=== PATIENT | male | born 1970 | race Caucasian/White ===

== ENCOUNTER 2017-11-03 06:24 | Day surgery (SDC) | payer BC ==
[2017-11-01 11:59] VITALS: BMI 31.6
[2017-11-03 07:29] VITALS: TEMP 98.7
[2017-11-03] MEDS ORDERED: SUCCINYLCHOLINE CHLORIDE 200 MG/10 ML VIAL ONE (08:41)
[2017-11-03] MEDS ORDERED: LIDOCAINE HCL/PF 2% SDV 5ML VIAL ONE ×2 (08:41→08:48)
[2017-11-03] MEDS ORDERED: MIDAZOLAM HCL 2 MG/2 ML SINGLE DOSE VIAL ONE ×2 (08:41)
[2017-11-03] MEDS ORDERED: PROPOFOL 20 ML ONE ×3 (08:41)
[2017-11-03] MEDS ORDERED: ACETAMINOPHEN INJECTION 100 ML IVPB ONE (08:52)
[2017-11-03] MEDS ORDERED: DESFLURANE GAS 240 ML BOTTLE IH ONE (08:54)
--- NOTE | 2017-11-03 08:59 | HP ---
[facility] - Chief Complaint Chief Complaint: Back mass, right posterior thigh mass History Source: Patient Limitations to Obtaining History: No Limitations - Past Medical History Allergies/Adverse Reactions: Allergies Allergy/AdvReac Type Severity Reaction Status Date / Time No Known Allergies Allergy Verified 11/03/17 07:30 - Current Medications Current Medications: Home Medications Medication Instructions Recorded Cholecalciferol (Vitamin D3) 50,000 unit PO WEEKLY 11/01/17 [Vitamin D3] Ferrous Sulfate [Feosol] 325 mg PO BID 11/01/17 Docusate Sodium [Colace -] 100 mg PO TID #90 capsule 11/03/17 Oxycodone HCl/Acetaminophen 1 - 2 tab PO Q6H #28 tab MDD 4 11/03/17 [Percocet 5-325 mg Tablet] Satellite Physical Exam - Physical Examination Vital Signs: Vital Signs Period Temp Pulse Resp BP Sys/Allen Pulse Ox Last 24 Hr 98.7 F 59 16 133/68 98 General Appearance: Well Nourished Lung: Clear to auscultation Heart: Regular rate & rhythm Abdomen: Soft, No tenderness Neurological: Alert, Oriented Satellite Impression/Plan - Impression/Plan Impression: Large back mass. Right exophytic thigh mass Operative Procedure: Excision of back mass and right posterior thigh mass Date to be Performed: 11/03/17
[2017-11-03] MEDS ORDERED: LIDOCAINE HCL 1%, 10 MG/ML (20ML VIAL) ONE (09:04)
[2017-11-03] MEDS ORDERED: ceFAZolin SODIUM 1 GM VIAL IVPB ONE (09:23)
[2017-11-03] MEDS ORDERED: LIDOCAINE HCL 1%, 10 MG/ML (20ML VIAL) INF ONE ×2 (09:38)
--- NOTE | 2017-11-03 10:32 | OP ---
Operative Note - Note: Operative Date: 11/03/17 Pre-Operative Diagnosis: Back mass. Right thigh mass Operation: Excision of back mass- 10cm x 10cm. Excision of right posterioir thigh mass- 4cm x 4cm Post-Operative Diagnosis: Same as Pre-op Surgeon: Adin Cerrato Anesthesia: General Specimens Removed: Back mass- 10cm x 10cm. Right posterioir thigh mass- 4cm x 4cm Estimated Blood Loss (mls): 10 Operative Report Dictated: Yes
--- NOTE | 2017-11-03 11:05 | OP ---
DATE OF OPERATION: 11/03/2017 SURGEON: Jennifer Cerrato MD PREOPERATIVE DIAGNOSES: 1. Left posterior back mass. 2. Right posterior thigh mass. POSTOPERATIVE DIAGNOSES: 1. Left posterior back mass. 2. Right posterior thigh mass. PROCEDURE: 1. Excision of left back mass, approximately 10 cm x 10 cm in size. 2. Excision of right posterior thigh mass, approximately 4 cm x 4 cm in size. ESTIMATED BLOOD LOSS: 5 mL DRAINS: None. ANESTHESIA: MAC/local. REASON FOR PROCEDURE: This is a 47-year-old gentleman who presented to the office for a left back mass which was large and mobile. He also presented for an exophytic right posterior thigh mass. He desired excision for both. The risks and benefits of the procedure were explained. These included bleeding; infection; hematoma; seroma; injury to surrounding structures including nerve injury, vessel injury, muscle injury; wound dehiscence; MN, DVT; and PE as some of the complications. He understood and signed informed consent. DESCRIPTION OF PROCEDURE: Patient was placed in the right lateral decubitus position. The thigh mass was prepped and draped in usual sterile fashion. Timeout was performed. The right posterior thigh mass was grabbed and local anesthesia injected circumferentially. The mass was excised at its base and removed. Hemostasis was obtained. A 4-0 Biosyn was used to close the skin. Dermabond dressing was applied. The back mass was then prepped and draped in usual sterile fashion as well. Local anesthesia was injected as well. An incision was made with a 10-blade scalpel through the skin and subcutaneous tissue. The mass was dissected from the surrounding structures until the entirety of it was circumferentially dissected and freed. The mass was noted to be large, approximately 10 cm x 10 cm in size, and likely consistent with a lipoma. The entirety of it was excised and sent off the field. Hemostasis was obtained. Irrigation and suction were performed until clear. The deep tissue was closed using a 3-0 Vicryl suture and the skin closed using a 3-0 silk suture in horizontal mattress fashion. Sterile dressing was applied. The patient tolerated the procedure well, was transferred to recovery room in stable condition. JENNIFER CERRATO M.D. JUSTINE/[id number]
[2017-11-03 11:15] VITALS: BP 118/75; PULSE 58
--- NOTE | 2017-11-07 16:13 | PATH ---
Surgical Pathology Report Patient Name: LION THOMPSON [facility]. Rec. #: [id number] /Age/Gender: 1970 (Age: 47) / M Account: [id number] Location: [facility] SURGICAL Taken: 11/03/2017 Received: 11/03/2017 Reported: 11/07/2017 Physicians: Adin Cerrato M.D. Specimen(s) Received A: MASS OF RIGHT POSTERIOR THIGH B: MASS OF LEFT BACK Clinical History Mass left back, mass right posterior thigh Final Diagnosis A. POSTERIOR THIGH, RIGHT, MASS, EXCISION: SUBCUTANEOUS FIBROLIPOMA. B. BACK, MASS, LEFT, EXCISION: MATURE FIBROADIPOSE TISSUE CONSISTENT WITH LIPOMA. Electronically Signed Esha Gomez M.D. Gross Description A. Received in formalin labeled "mass right posterior thigh," is a 1.1 x 0.8 x 0.6 cm valencia, polypoid portion of soft tissue. The base is inked blue and the specimen is bisected and entirely submitted in one cassette. B. Received in formalin labeled "mass left back," is an 8.3 x 6.0 x 2.7 cm portion of yellow, lobulated adipose tissue. Sectioning reveals homogeneous yellow, smooth fat. No areas of hemorrhage or necrosis are identified. Veneer Lathe Operator sections are submitted in 4 cassettes. /11/03/2017 saudi11/03/2017
== END 2017-11-03 11:35 | disposition home or self-care (01) ==
LOC: JASU-SURG 06:24
PROVIDERS: ATTEND Surgery
PROC: 0JBL0ZZ Excision of Right Upper Leg Subcutaneous Tissue and Fascia, Open Approach (ICD-10-PCS; 2017-11-03)
PROC: 0JB70ZZ Excision of Back Subcutaneous Tissue and Fascia, Open Approach (ICD-10-PCS; principal; 2017-11-03 08:30)
DX: D17.1 Benign lipomatous neoplasm of skin and subcutaneous tissue of trunk (principal); D17.23 Benign lipomatous neoplasm of skin and subcutaneous tissue of right leg
CPT/HCPCS: 88304-TC; J0131